=== PATIENT | female | born 1955 | race Caucasian/White ===

== ENCOUNTER 2016-06-01 08:02 | Day surgery (SDC) | payer OTHER ==
[~2016-06-01 08:02] MED LIST: RINGERS SOLUTION,LACTATED 1,000 ML IV PRN
--- OUTSIDE RECORDS SUMMARY | 2016-06-01 08:06 | XMS REPORT | Continuity of Care Document ---
:1955 Demographics Phone Unavailable Preferred Language Unknown Marital Status Unknown Jainism Affiliation Unknown Race Unknown Ethnic Group Unknown Author Organization [facility] ([facility]) [place] [address] Phone [phone] Care Team Providers Name Role Phone Unavailable Primary Care Provider Unavailable Source Comments This disclosure is being made pursuant to the Care Everywhere program, applicable federal and state laws, and may not contain all informaitonavailable regarding this patient.[facility] ([facility]) Active Allergies and Adverse Reactions Not on File Current Medications Not on file Active Problems Not on file Social History Tobacco Use Types Packs/Day Years Used Date Never Assessed Plan of Care Health Maintenance Due Date Last Done Comments HCV Screening 1955 Hepatitis B Vaccine (1 of 3 - Primary Series) 1955 Tdap Vaccine 11/19/1966 Lipid Disorder Screening 11/19/1973 MMR Vaccine 11/19/1973 Td Vaccine 11/19/1973 Cervical Cancer Screening 11/19/1985 Mammogram 1995 Colonoscopy 11/19/2005 Influenza Vaccine: Seasonal (#1) 11/16/2015 Zoster Vaccine 2015 Results from Last 3 Months Not on file
[2016-06-01] MEDS ORDERED: RINGERS SOLUTION,LACTATED 1,000 ML IV ONE (09:50)
[2016-06-01 11:39] VITALS: BP 127/65
--- NOTE | 2016-06-01 18:01 | OR ---
Operative Report - Dictated Report Narrative: OPERATIVE REPORT DATE OF OPERATION: 06/01/2016 PREOPERATIVE DIAGNOSIS: No recent dedicated colon studies POSTOPERATIVE DIAGNOSIS: Normal colonoscopy OPERATION: Colonoscopy SURGEON: Mitch Miles MD ANESTHESIA: BENJAMÍN Junior CRNA INDICATIONS FOR PROCEDURE: The patient is a 60-year-old female who presents self referred for colon screening. Her last colonoscopy in 2007 was normal. There is no family history of colon cancer. The patient is currently asymptomatic. FINDINGS: Very capacious colon requiring use of standard reduction maneuvers to reach the cecum. Scattered diverticulosis. NARRATIVE OF PROCEDURE: The patient was identified in the holding area, and prior to the administration of anesthetic, a multidisciplinary timeout was observed. With the patient in the left lateral position and after the administration of intravenous sedation, the perineum was inspected. There was no evidence of pilonidal disease or skin breakdown. The external appearance of the anus was normal. Sphincter tone was good. The flexible fiberoptic colonoscope was inserted into the rectum which was insufflated with air. The rectal mucosa and submucosal vascular pattern appeared normal, the prep was seen to be complete. The scope was advanced through the sigmoid colon, up the descending colon, and around the splenic flexure where the triangular haustral architecture of the transverse colon was seen. The scope was advanced across the transverse colon to just distal to the hepatic flexure. At this juncture the use of standard reduction maneuvers and gentle external manual compression was needed to maneuver around the hepatic flexure and reach the cecum, where the confluence of tenia and the ileocecal valve were identified. The mucosa at this level appeared normal. The scope was then slowly withdrawn in a circular fashion so that all aspects of colonic mucosa were inspected. The colon was very capacious in character and slightly redundant in course. The haustral architecture appeared well preserved throughout with no evidence of external compression. The mucosa and submucosal vascular pattern appeared normal, specifically there was no gross evidence to suggest colitis or inflammatory bowel disease and no AV malformations were seen. Several diverticula were demonstrated in the sigmoid colon. No polyps were encountered. The scope was gradually withdrawn to the level of the rectum. As much insufflated air as possible was removed. The scope was withdrawn from the patient and the procedure terminated. The patient tolerated the anesthetic and procedure well without complication and was transferred back to the ambulatory surgery area awake and in stable condition. The patient remained stable throughout a period of postoperative observation. She denied abdominal discomfort, was able to tolerate by mouth intake, and was up without assistance. I shared the operative findings with the patient and she was given copies of the photographs which appear in the medical record. She was discharged home with instructions not to engage in hazardous activity today , but may resume normal activity tomorrow, and advance diet as tolerated. She is to continue those medications as listed in the history and physical exam. RECOMMENDATION: She should have a digital rectal exam/occult blood determination at the time of any pelvic exam with tentative colon surveillance in 10 years depending upon symptoms and findings Reviewed and electronically signed
== END 2016-06-01 08:03 | disposition home or self-care (01) ==
LOC: AMB 08:02
PROVIDERS: ATTEND Surgery
PROC: 0DJD8ZZ Inspection of Lower Intestinal Tract, Via Natural or Artificial Opening Endoscopic (ICD-10-PCS; principal; 2016-06-01 09:00)
DX: Z12.11 Encounter for screening for malignant neoplasm of colon (principal); Z68.25 Body mass index [BMI] 25.0-25.9, adult